=== PATIENT | male | born 1970 | race Caucasian/White ===

== ENCOUNTER 2020-09-06 20:04 | Emergency (ER) | payer BC ==
[~2020-09-06] VITALS: Ht 182.9 cm; Wt 86.2 kg
[~2020-09-06 20:04] MED LIST: CARB100T24 PO; [UNRECOGNIZED DRUG - OTHER]
[2020-09-06 20:06] VITALS: BP_SYST 132
--- NOTE | 2020-09-06 20:06 | NUR ---
Seizure precautions in place. Seizure pads applied to gurney. Side rails up.
--- NOTE | 2020-09-06 20:06 | NUR ---
Patient to [facility] for evaluation. Side rails up. Report given to TAMMIE CÁRDENAS
--- NOTE | 2020-09-06 20:07 | NUR ---
# 20 gauge angiocath placed to LEFT HAND placed by MEDICS prior to arrival. Flushed with 10 cc of normal saline. No evidence of infiltration noted. Patient tolerated well.
--- NOTE | 2020-09-06 20:10 | NUR ---
ER Dr. CHRISTIAN at bedside examining patient.
--- NOTE | 2020-09-06 20:34 | NUR ---
LAB AT BEDSIDE DRAWING LABS FOR BLOOD.
--- NOTE | 2020-09-06 20:43 | NUR ---
PT BIB ALS alert and oriented x4, from a liquor store after a witnessed tonic clonic seizure. pt has hx of seizures. pt states he was standing at liquor store and fell to the ground when seizing. pt denies any pain. No apparent trauma to head or extremities. pt c/o of nausea. pt reports taking keppra and carbamazepine for seizures and states he has been complacent. will continue to monitor.
[2020-09-06] MEDS ORDERED: LORazepam 2 MG/ML VIAL ONE (20:52)
[2020-09-06 20:56] LABS: ANION GAP 24 (5-15); CALCIUM 8.1 mg/dL (8.4-11.0); CHLORIDE 99 mmol/L (98-107); CREATININE 1.13 mg/dL (0.55-1.30); GLUCOSE 260 mg/dL (70-99); POTASSIUM 3.4 mmol/L (3.5-5.1); SODIUM SERUM 139 mmol/L (136-145); UREA NITROGEN, BLOOD 21 mg/dL (8-21)
[2020-09-06] MEDS: LORazepam 2 MG/ML VIAL IVP ONE (20:57)
[2020-09-06 21:00] LABS: GFR AFRICAN AMERICAN 88 mL/min (>90)
--- NOTE | 2020-09-06 21:00 | NUR ---
patient had about a 1 min long seizure witnessed by myself and Dr. Escobar. seizures pads on side rails. patient placed on 2L O2 per md order. patient now resting in bed, post stictal. will continue to monitor.
[2020-09-06 21:05] LABS: ALANINE AMINOTRANSFERASE 70 U/L (12-78); ALBUMIN 3.5 g/dL (3.4-4.8); ALCOHOL, BLOOD 111 mg/dL (<10); ASPARTATE AMINOTRANSFERASE 55 U/L (10-37); TOTAL BILIRUBIN 0.4 mg/dL (0.0-1.0)
[2020-09-06 21:06] LABS: BASOPHILS # (AUTO) 0.1 K/uL (0.0-0.2); BASOPHILS % (AUTO) 1.8 % (0.0-2.0); EOSINOPHILS # (AUTO) 0.1 K/uL (0.0-0.4); EOSINOPHILS % (AUTO) 0.7 % (0.0-4.0); HEMATOCRIT 44.8 % (36-54); HEMOGLOBIN 15.1 g/dL (14.0-18.0); LYMPHOCYTES # (AUTO) 3.2 K/uL (1.0-5.5); LYMPHOCYTES % (AUTO) 39.9 % (20.5-51.5); MEAN CORPUSCULAR HEMOGLOBIN 34 pg (27-31); MEAN CORPUSCULAR HGB CONC 34 % (32-36); MEAN CORPUSCULAR VOLUME 102 fL (79.0-98.0); MONOCYTES # (AUTO) 0.7 K/uL (0.0-1.0); MONOCYTES % (AUTO) 8.3 % (1.7-9.3); NEUTROPHILS # (AUTO) 3.9 K/uL (1.8-7.7); NEUTROPHILS % (AUTO) 49.3 % (40.0-70.0); PLATELET COUNT (AUTO) 176 K/uL (130-430); RED BLOOD CELL COUNT(AUTO) 4.39 MIL/uL (4.2-6.2); WHITE BLOOD COUNT (AUTO) 7.9 K/uL (4.8-10.8)
[2020-09-06] MEDS: levETIRAcetam 1,000 MG IV BAG 100 ML IV ONE (21:14)
--- NOTE | 2020-09-06 21:30 | NUR ---
Patient transported to radiology via gurney, accompanied by staff.
--- NOTE | 2020-09-06 21:45 | NUR ---
PATIENT RETURNED FROM RADIOLOGY, IN STABLE CONDITION, NO SIGNS OF ACUTE DISTRESS.
--- NOTE | 2020-09-06 22:46 | NUR ---
PATIENT GIVEN ICE CHIPS PER REQUEST.
--- NOTE | 2020-09-06 23:00 | NUR ---
PATIENT NAUSEOUS AND THREW UP. AWARE. ORDER RECEIVED FOR ZOFRAN 4MG IVP.
[2020-09-06 23:01] LABS: BILIRUBIN,URINE NEGATIVE (NEGATIVE); CLARITY/URINE SL CLOUDY (CLEAR); COLOR,URINE YELLOW (YELLOW); GLUCOSE,URINE NEGATIVE (NEGATIVE); KETONES,URINE NEGATIVE (NEGATIVE); LEUKOCYTE ESTERASE ,URINE NEGATIVE (NEGATIVE); NITRITE, URINE NEGATIVE (NEGATIVE); PROTEIN URINE 1+ (NEGATIVE); UROBILINOGEN,URINE 0.2 (0.2-1.0)
[2020-09-06 23:03] LABS: BLOOD, URINE TRACE (NEGATIVE)
[2020-09-06] MEDS: ONDANSETRON HCL 4 MG/2 ML VIAL IVP ONE (23:04)
[2020-09-06 23:12] LABS: BACTERIA,URINE RARE /HPF (None Seen)
[2020-09-06 23:13] VITALS: BP_SYST 149
[2020-09-06 23:17] LABS: BENZODIAZEPINE, URINE POSITIVE (NEG <=150)
[2020-09-06 23:18] LABS: BARBITURATE, URINE NEGATIVE (NEG <=200); COCAINE, URINE NEGATIVE (NEG <=150); METHAMPHETAMINES SCREEN,URINE NEGATIVE (NEG <=500); URINE AMPHETAMINE NEGATIVE (NEG <=500); URINE METHADONE NEGATIVE (NEG <=200)
[2020-09-06 23:19] LABS: CANNABINOID, URINE NEGATIVE (NEG <=50); OPIATE, URINE NEGATIVE (NEG <=100); PHENCYCLIDINE SCREEN,URINE NEGATIVE (NEG <=25); UR TRICYCLIC ANTIDEPRESSANTS NEGATIVE (NEG <=300); URINE OXYCODONE SCREEN NEGATIVE (NEG <=100); URINE PROPOXYPHENE SCREEN NEGATIVE (NEG <=300)
== END 2020-09-06 23:13 | disposition home or self-care (01) ==
LOC: SED 20:04
DX: G40.909 Epilepsy, unspecified, not intractable, without status epilepticus (principal); F10.129 Alcohol abuse with intoxication, unspecified; I10 Essential (primary) hypertension
CPT/HCPCS: 36415; 70450; 71045; 76376; 80053; 80307; 81000; 84484; 85025; 96365; 96375; 99291; G0482; J1953; J2060; J2405

== ENCOUNTER 2022-01-15 09:45 | Inpatient (IN) | payer BC, OTHER ==
[~2022-01-15] VITALS: Ht 182.9 cm; Wt 86.2 kg
[2022-01-15 09:50] VITALS: BP_SYST 149
[2022-01-15 10:44] LABS: BASOPHILS % (AUTO) 0.9 % (0.0-2.0); EOSINOPHILS # (AUTO) 0.2 K/uL (0.0-0.4); EOSINOPHILS % (AUTO) 3.8 % (0.0-4.0); HEMATOCRIT 41.8 % (36-54); HEMOGLOBIN 14.2 g/dL (14.0-18.0); LYMPHOCYTES # (AUTO) 2.5 K/uL (1.0-5.5); LYMPHOCYTES % (AUTO) 47.5 % (20.5-51.5); MEAN CORPUSCULAR HEMOGLOBIN 34 pg (27-31); MEAN CORPUSCULAR HGB CONC 34 % (32-36); MEAN CORPUSCULAR VOLUME 99 fL (79.0-98.0); MONOCYTES # (AUTO) 0.4 K/uL (0.0-1.0); MONOCYTES % (AUTO) 8.5 % (1.7-9.3); NEUTROPHILS # (AUTO) 2.1 K/uL (1.8-7.7); NEUTROPHILS % (AUTO) 39.3 % (40.0-70.0); PLATELET COUNT (AUTO) 98 K/uL (130-430); WHITE BLOOD COUNT (AUTO) 5.3 K/uL (4.8-10.8)
[2022-01-15 11:05] LABS: ANION GAP 9 (5-15); CALCIUM 8.3 mg/dL (8.4-11.0); CHLORIDE 104 mmol/L (98-107); GLUCOSE 97 mg/dL (70-99); POTASSIUM 4.2 mmol/L (3.5-5.1); SODIUM SERUM 139 mmol/L (136-145); UREA NITROGEN, BLOOD 19 mg/dL (8-21)
[2022-01-15 11:13] LABS: GFR AFRICAN AMERICAN 114 mL/min (>90)
[2022-01-15 11:15] LABS: ALANINE AMINOTRANSFERASE 52 U/L (12-78); ALBUMIN 3.3 g/dL (3.4-4.8); ASPARTATE AMINOTRANSFERASE 55 U/L (10-37); TOTAL BILIRUBIN 0.4 mg/dL (0.0-1.0)
[2022-01-15 11:41] LABS: CARBAMAZEPINE (TEGRETOL) 17 ug/mL (4-12)
[2022-01-15] MEDS ORDERED: LORazepam 2 MG/ML VIAL IVP PRN (12:30)
[2022-01-15] MEDS ORDERED: D5/0.45 NS 1,000 ML IV ONE (13:30)
[2022-01-15 15:00] VITALS: BP_SYST 157
[2022-01-15] MEDS ORDERED: CARB300C PO (15:00)
[2022-01-15] MEDS ORDERED: LEVE500T9 PO (15:00)
[2022-01-15] MEDS ORDERED: LOSA100T3 PO (15:00)
[2022-01-15 17:00] VITALS: BP_SYST 157
[2022-01-15 22:43] VITALS: BP_SYST 155
[2022-01-15 22:47] VITALS: BP_SYST 155
[2022-01-16 00:08] VITALS: BP_SYST 148
[2022-01-16 12:40] VITALS: BP_SYST 157
[2022-01-16 16:00] VITALS: BP_SYST 148
[2022-01-16 16:52] VITALS: BP_SYST 146
[2022-01-16] MEDS ORDERED: CARB300C PO (17:19)
[2022-01-16] MEDS ORDERED: LEVE10006 PO (17:22)
== END 2022-01-16 17:48 | disposition home or self-care (01) | DRG 918 ==
LOC: SED 09:45 → STU 12:25
PROVIDERS: ADMIT Internal Medicine; ATTEND Internal Medicine
DX: T42.1X1A Poisoning by iminostilbenes, accidental (unintentional), initial encounter (principal); E46 Unspecified protein-calorie malnutrition; I10 Essential (primary) hypertension; Z20.822 Contact with and (suspected) exposure to COVID-19; G40.909 Epilepsy, unspecified, not intractable, without status epilepticus; T42.1X5A Adverse effect of iminostilbenes, initial encounter; Y92.89 Other specified places as the place of occurrence of the external cause; Z68.25 Body mass index [BMI] 25.0-25.9, adult
CPT/HCPCS: 36415; 70450-TC; 71045; 76376; 80053; 80156; 83605; 84484; 85025; 93005; G0378; J2060

== ENCOUNTER 2022-10-18 13:20 | Emergency (ER) | payer OTHER ==
[~2022-10-18] VITALS: Ht 182.9 cm; Wt 90.7 kg
[~2022-10-18 13:20] MED LIST changes: -CARB100T24 PO; +CARB300C PO; +LEVE10006 PO; +LOSA100T3 PO
[2022-10-18 13:26] VITALS: BP_SYST 108
[2022-10-18 15:41] LABS: BASOPHILS # (AUTO) 0.1 K/uL (0.0-0.2); BASOPHILS % (AUTO) 0.9 % (0.0-2.0); EOSINOPHILS % (AUTO) 0.1 % (0.0-4.0); HEMATOCRIT 45.1 % (36-54); HEMOGLOBIN 15.4 g/dL (14.0-18.0); LYMPHOCYTES # (AUTO) 2.3 K/uL (1.0-5.5); LYMPHOCYTES % (AUTO) 28.3 % (20.5-51.5); MEAN CORPUSCULAR HEMOGLOBIN 34 pg (27-31); MEAN CORPUSCULAR HGB CONC 34 % (32-36); MEAN CORPUSCULAR VOLUME 99 fL (79.0-98.0); MONOCYTES # (AUTO) 0.6 K/uL (0.0-1.0); MONOCYTES % (AUTO) 7.9 % (1.7-9.3); NEUTROPHILS # (AUTO) 5.1 K/uL (1.8-7.7); NEUTROPHILS % (AUTO) 62.8 % (40.0-70.0); PLATELET COUNT (AUTO) 147 K/uL (130-430); RED BLOOD CELL COUNT(AUTO) 4.58 MIL/uL (4.2-6.2); WHITE BLOOD COUNT (AUTO) 8.2 K/uL (4.8-10.8)
[2022-10-18] MEDS ORDERED: APIX5TAB4 PO (15:46)
[2022-10-18] MEDS ORDERED: APIX5TAB PO (15:46)
[2022-10-18 15:56] LABS: CALCIUM 9.2 mg/dL (8.4-11.0); CREATININE 0.86 mg/dL (0.55-1.30)
[2022-10-18 15:57] VITALS: BP_SYST 108
[2022-10-18 16:00] LABS: ALBUMIN 3.5 g/dL (3.4-4.8); TOTAL BILIRUBIN 0.5 mg/dL (0.0-1.0)
== END 2022-10-18 15:57 | disposition home or self-care (01) ==
LOC: SED 13:20
DX: I82.402 Acute embolism and thrombosis of unspecified deep veins of left lower extremity (principal); M79.652 Pain in left thigh; I10 Essential (primary) hypertension; Z79.899 Other long term (current) drug therapy; Z20.822 Contact with and (suspected) exposure to COVID-19
CPT/HCPCS: 36415; 80053; 85025; 93971; 99284